=== PATIENT | female | born 1985 | race Caucasian/White ===

== ENCOUNTER 2016-10-16 18:07 | Emergency (ER) | payer OTHER ==
[~2016-10-16] VITALS: Ht 147.3 cm; Wt 80.5 kg
[~2016-10-16 18:07] MED LIST: BENA20 PO
[2016-10-16 19:09] VITALS: BP 127/93
== END 2016-10-16 19:41 | disposition home or self-care (01) ==
LOC: EMS 18:08
DX: J06.9 Acute upper respiratory infection, unspecified (principal)
CPT/HCPCS: 99283

== ENCOUNTER 2016-10-25 04:30 | Emergency (ER) | payer OTHER ==
[~2016-10-25] VITALS: Ht 147.3 cm; Wt 77.3 kg
[2016-10-25 04:34] VITALS: BP 152/97
[2016-10-25] MEDS ORDERED: AMOXICILLIN TRIHYDRATE 250 MG CAPSULE PO ONE (06:30)
[2016-10-25] MEDS ORDERED: HYDROCODONE/ACETAMINOPHEN 5-325 MG TABLET PO ONE (06:30)
== END 2016-10-25 06:48 | disposition home or self-care (01) ==
LOC: EMS 04:31
DX: H66.41 Suppurative otitis media, unspecified, right ear (principal); I10 Essential (primary) hypertension
CPT/HCPCS: 99283

== ENCOUNTER 2017-01-22 07:30 | Emergency (ER) | payer OTHER ==
[~2017-01-22] VITALS: Ht 149.9 cm; Wt 81.0 kg
[2017-01-22 07:38] VITALS: BP 124/77
[2017-01-22] MEDS ORDERED: LISI-662 PO (07:44)
[2017-01-22] MEDS ORDERED: IBUPROFEN 600 MG TABLET PO ONE (08:00)
[2017-01-22] MEDS ORDERED: DEXAMETHASONE SOD PHOS 4 MG/ML 5 ML VIAL IM ONE (08:00)
== END 2017-01-22 08:31 | disposition home or self-care (01) ==
LOC: EMS 07:33
DX: J02.8 Acute pharyngitis due to other specified organisms (principal); B97.89 Other viral agents as the cause of diseases classified elsewhere; I10 Essential (primary) hypertension
CPT/HCPCS: 87430; 96372; 99283; J1100

== ENCOUNTER 2018-03-25 09:08 | Emergency (ER) | payer OTHER ==
[~2018-03-25] VITALS: Ht 149.9 cm; Wt 56.8 kg
[~2018-03-25 09:08] MED LIST changes: -BENA20 PO; +LISI-662 PO
[2018-03-25 09:11] VITALS: BP 146/113
[2018-03-25] MEDS ORDERED: ASCO500 PO (09:13)
[2018-03-25] MEDS ORDERED: CYAN100 PO (09:13)
[2018-03-25] MEDS ORDERED: [UNRECOGNIZED DRUG - CODE] PO (09:13)
== END 2018-03-25 11:35 | disposition left against medical advice (07) ==
LOC: EMS 09:09
DX: M79.605 Pain in left leg (principal); G89.29 Other chronic pain; I10 Essential (primary) hypertension; Z53.21 Procedure and treatment not carried out due to patient leaving prior to being seen by health care provider